=== PATIENT | female | born 1985 | race Caucasian/White ===

== ENCOUNTER 2022-12-01 11:39 | Emergency (ER) | payer BC, SELFPAY ==
[2022-12-01] VITALS (7 sets, daily range): BP systolic 100–133; BP diastolic 76–96; PULSE 69–97; RESP 15–20; TEMP 36.8; O2SAT 97–100; BMI 25.1
--- NOTE | 2022-12-01 11:51 | HMH.EDGENADL ---
Discharge Plan Disposition Patient Disposition: Home, Self-Care Condition: Good Chief Complaint: Altered Mental Status Referrals Follow up/Referrals: Provider,Referral, [Primary Care Provider] - See instructions Activity Restrictions/Add. Instructions Additional Instructions/Restrictions: Follow-up with your primary care provider, call tomorrow to make appointment. Clinical Impressions Clinical Impression: AMS (altered mental status) Instructions Patient Instructions: DI for Altered Mental Status Discharge ED Provider: Garett Gold General Adult HPI General Chief complaint: Altered Mental Status Stated complaint: ams Time Seen by Provider: 12/01/22 11:43 Mode of Arrival: Ambulatory Source of Information: Patient Limitations: No Limitations Description of Symptoms (Recalled from ER Triage Doc. by RN): pt to ed c/o drowsiness. per ems pt was found sleeping in her car in a driveway of a home. per ems pt states she had stopped to ask if the resident would sell their home, and when she got back in the car her heated and vibrating seats put her to sleep. on arrival to ed pt denies any complaints of pain. pt reported to ems that she has had 3 800mg gapapentin tablets this morning. History of Present Illness HPI narrative: The patient is brought in by EMS. She was apparently found in some [employer] driveway in her car nodding off . She says that she was looking for a new home and thought that the home was vacant and stopped to see the home. She then got back into her car and says that the heat and vibrating seat put her to sleep briefly. 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 She denies any street drug use. She occasionally uses cannabis edibles, but says she has not had any today. She denies alcohol use. She is on gabapentin 3 times a day and states that she has taken a couple of them this morning. She denies any excess use. When I advised her that her speech is slurred and she seems impaired, likely by some sort of medication or drug, she denies this and states that she is just tired from working all night and a lack of sleep. She denies any recent illness and says she feels perfectly fine. Related Data Allergies Allergy/AdvReac Type Severity Reaction Status Date / Time No Known Allergies Allergy Verified 12/01/22 11:53 [facility] Disclaimer: The information contained in this section may have been updated after the patient was seen, as this information can be updated by other users. Social History Smoking Status: Never smoker ROS Obtained: Yes Systems reviewed as appropriate & no additional complaints except as documented Constitutional Constitutional: Denies fever(s), Denies headache(s) and Denies weakness ENT Ears, Nose, Mouth, and Throat: Denies headache(s), Denies nasal discharge and Denies sore throat Cardiovascular Cardiovascular: Denies chest pain Respiratory Respiratory: Denies shortness of breath and Denies cough Gastrointestinal Gastrointestingal: Denies abdominal pain, constipation, diarrhea or vomiting Genitourinary Female Genitourinary: Denies difficulty voiding, Denies dysuria and Denies flank pain Musculoskeletal Musculoskeletal: Denies numbness Neurologic Neurologic: Denies headache(s), Denies numbness and Denies weakness Physical Exam General General appearance: alert and in no apparent distress Head Head exam: atraumatic and normocephalic Eye Eye exam: Present normal appearance and EOMI ENT ENT exam: Present mucous membranes moist Neck Neck exam: Present normal inspection and trachea midline Chest Chest inspection: Present normal inspection and symmetric chest wall rise Respiratory Respiratory exam: Present normal lung sounds bilaterally; Absent respiratory distress Cardiovascular Cardiovascular exam: Present regular rate, normal rhythm and normal heart sounds Abdominal Exam Abdominal exam: Present soft and normal bowel sounds; Absent distention,
--- NOTE | 2022-12-01 12:00 | PC.NURSE ---
walked into patient room and pt was going through drawers and cabinets in room, stuffing her pockets with materials from the room. when asked pt what she was doing she stated i take things home from work all the time. pt was advised to leave materials in the room as is. spoke with who states it is okay to straight stick pt for blood vs placing IV.
--- NOTE | 2022-12-01 12:28 | PC.NURSE ---
stu magaña at the bedside to speak with pt.
[2022-12-01 12:49] LABS: Basophils # 0.1 K/mm3 (0-0.2); Basophils % 0.7 % (0.1-2.0); Eosinophils % 0.2 % (0.1-12.0); Hematocrit 40.6 % (37.0-47.0); Hemoglobin 13.6 g/dL (12.2-16.2); Lymphocytes # 2.9 K/mm3 (0.7-4.5); Lymphocytes % 31.3 % (10-50); Mean Corpuscular HGB Conc 33.5 g/dL (31.8-35.4); Mean Corpuscular Hemoglobin 30.6 pg (27.0-31.2); Mean Corpuscular Volume 91.4 fl (81-99); Mean Platelet Volume 8.7 fl (7.4-10.4); Monocytes # 0.6 K/mm3 (0.1-1.0); Neutrophils # 5.6 K/mm3 (1.8-7.8); Neutrophils % 60.8 % (37.0-80.0); Platelet Count 348 K/mm3 (142-424); Red Blood Count 4.44 M/mm3 (4.20-5.40); Red Cell Distribution Width 13.1 % (11.5-17.5); White Blood Count 9.2 K/mm3 (4.8-10.8)
[2022-12-01 12:54] LABS: Chloride 104 mmol/L (98-107)
[2022-12-01 12:55] LABS: Potassium 3.8 mmoL/L (3.5-5.1); Sodium 140 mmol/L (136-145)
[2022-12-01 12:57] LABS: Alanine Aminotransferase 43 U/L (12-78); Anion Gap 12.8 mEq/L (5-15); Aspartate Amino Transferase 39 U/L (14-36); Blood Urea Nitrogen 14 mg/dl (7-17); Carbon Dioxide 27 mmol/L (22.0-30.0); Creatinine Clearance Estimated 188 mL/min (50-200); Estimated Glomerular Filt Rate 139 ml/min (>60); GFR (African American) 168 ML/MIN (>60); HCG Qualitative, Serum Negative (Negative)
[2022-12-01 12:58] LABS: Acetaminophen < 10 ug/ml (10-30); Albumin Level 4.7 g/dl (3.5-5.0); Albumin/Globulin Ratio 1.4 (1.1-1.8); Alkaline Phosphatase 93 U/L (38-126); Bilirubin,Total 0.5 mg/dl (0.2-1.3); Calcium 9.2 mg/dl (8.4-10.2); Globulin 3.4 g/dL (1.3-3.2); Glucose 80 mg/dl (74-100); Salicylate < 1.0 mg/dL (2.0-20.0); Total Protein,Serum 8.1 g/dl (6.3-8.2)
[2022-12-01 12:59] LABS: Ethyl Alcohol < 10 mg/dl (0-10)
--- NOTE | 2022-12-01 14:22 | PC.NURSE ---
This nurse went in pt room to discuss getting a urine, pt states that she went once, but didn't get a sample. she has since tried 3 times with no success. Discussed with pt about in and out cath, pt states that she would just rather go to her family physician due to them no hurting her when they do the in/out cath. Ask the pt is she could give sample without in/out, again she states the above about going 3 times already with no success. Pt is getting out of the bed and taking off bp cuff. Dad is at stating this is pt normal. Dad states that he doesn't understand what altered means. Explained by pt that it is her not acting herself, ask her dad, is this the way I am everyday, dad states that yes this is. Explained to dad that this mean pt is not acting currently like she would every day. Dad states that to him she is acting like she does everyday. Pt walking out to the nurses station, recommended she wait for the MD. PT states she just wants to leave and fu with her physician. MD at the bedside, pt states that she wants to leave and due to us wanting to do a in/out cath on her, MD asked if she can gives us a sample, pt states that she has tried 3 times, MD is ok with pt not giving urine and states to give him a few minutes and he will DC her. PT comes out to the nurses station and states that she is leaving, staff informed pt that MD is getting her DC stuff and to wait in the room. PT turns to go to her room with dad stating that she is never coming here again. PT is putting ER supplies into her purse and pockets, coband, urination wipes, pads and etc. Staff asked pt to put ER belongings back.
--- NOTE | 2022-12-01 14:33 | PC.NURSE ---
pt refuses to give urine for a UA
== END 2022-12-01 14:41 | disposition home or self-care (01) ==
PROVIDERS: Emergency Provider Emergency Medicine
DX: R41.82 Altered mental status, unspecified (principal)
CPT/HCPCS: 80053; 80329; 84703; 85025; 99284; 99285